=== PATIENT | male | born 1975 | race Caucasian/White ===

== ENCOUNTER 2017-11-07 11:32 | Emergency (ER) | payer BC, OTHER ==
[~2017-11-07 11:32] MED LIST: AMOX500T PO; AZIT250T3 PO; FEXO1TAB97 PO; LEXA10TA PO
[2017-11-07 11:34] VITALS: BP 113/65; PULSE 140; RESP 22; TEMP 102.8; O2SAT 97
[2017-11-07 11:43] VITALS: BP 133/83; PULSE 100; RESP 18; TEMP 99.3; O2SAT 98
--- NOTE | 2017-11-07 11:59 | PD ---
HPI Chief Complaint: Cold / Flu Symptoms Time Seen by Provider: 11:50 Travel History International Travel<30 days: No Contact w/Intl Traveler<30days: No Traveled to known affect area: No History of Present Illness HPI Patient comes emergency department complaining of cold/flulike symptoms that began last night. Patient complaining of generalized body aches, congestion, and subjective fevers,. Denies any known sick contacts. Denies any chest pain , abdominal pain, neck pain, sore throat, headache, back pain, vomiting, nausea , loss or change in bladder, or numbness or tingling anywhere. Denies anything making symptoms worse. Patient does report 3 episodes of nonbloody loose stool today. Patient reports taking ibuprofen that seemed to help some. Reports achiness radiates throughout his body. PFSH Past Medical History Anxiety: Yes Diminished Hearing: No Past Surgical History Other Surgery: Yes (ADENOIDS) Social History Alcohol Use: Yes (OCC) Tobacco Use: Yes (1 PPD) Substance Use: No Allergies-Medications (Allergen,Severity, Reaction): Coded Allergies: promethazine (Unverified Allergy, Unknown, 10/20/17) Reported Meds & Prescriptions Reported Meds & Active Scripts Active Azithromycin 250 Mg Tab 250 Mg PO DIRECTED Take 2 tabs (500 mg) on day 1 then 1 tab daily x 4 days. Shannon-D 24 Hour Allergy (Fexofenadine-Pseudoephedrine ER 24 HR) 180-240 Annmarie 1 Tab PO DAILY Amoxicillin 500 Mg Tab 1,000 Mg PO BID Reported Lexapro (Escitalopram Oxalate) 10 Mg Tab 10 Mg PO DAILY Review of Systems Except as stated in HPI: all other systems reviewed are Neg Physical Exam Narrative GENERAL: Well-developed, overly nourished, in no acute distress, and non-ill appearing. SKIN: Focused skin assessment warm and dry. HEAD: Atraumatic. Normocephalic. EYES: Pupils equal and round. EOMI. No scleral icterus. No injection or drainage. ENT: No nasal bleeding or discharge. Mucous membranes pink and moist. Tympanic membranes pearly aranda bilaterally. Posterior pharynx nonerythematous without exudate. Uvula is midline. No tenderness to facial sinuses to palpation. NECK: Trachea midline. No cervical lymphadenopathy. Supple. No nuclear rigidity. CARDIOVASCULAR: Regular rate and rhythm. No murmur appreciated. RESPIRATORY: No accessory muscle use. No respiratory distress. Clear to auscultation. Breath sounds equal bilaterally. GASTROINTESTINAL: Abdomen soft, non-tender, nondistended, and no guarding. Hepatic and splenic margins not palpable. Normal bowel sounds x4. No pulsatile mass. MUSCULOSKELETAL: No obvious deformities. No clubbing. No cyanosis. No edema. Full range of motion. NEUROLOGICAL: Awake and alert. No obvious cranial nerve deficits. Motor grossly within normal limits. Normal speech. PSYCHIATRIC: Appropriate mood and affect; insight and judgment normal. Data Data Last Documented VS Vital Signs Date Time Temp Pulse Resp B/P (MAP) Pulse Ox O2 Delivery O2 Flow Rate FiO2 11/07/17 11:43 99.3 100 18 133/83 (100) 98 Orders Orders Influenzae A/B Antigen (11/07/17 11:56) Ed Discharge Order (11/07/17 13:10) [facility] Medical Decision Making Medical Screen Exam Complete: Yes Emergency Medical Condition: Yes Differential Diagnosis Influenza, URI, sinusitis, allergies, viral syndrome Narrative Course Patient looks great, non-ill appearing. The patient is tolerating fluids and is well hydrated. Appears viral symptom complex. No clinical evidence by history or evaluation to suspect meningitis and/or sepsis. There was no evidence to suggest peritonsillar abscess or retropharyngeal abscess.The patient moves air well and oxygen saturations are normal. There is no clinical evidence to suggest pneumonia at this time. I discussed with the patient, diagnosis, plan of care and to follow up with the patients primary physician. The patient was instructed to return if the worsens in anyway, especially if not tolerating fluids, increased pain or swelling, difficulty swallowing or breathing, persistent fever, chest pains or discomfort, inability to keep medication or fluids down with or without vomiting, or as needed. The patient agreed with plan. Patient in no obvious distress upon re-evaluation. All pertinent laboratory result(s) discussed with patient. Any questions/concerns in reference to patient diagnosis/condition discussed and clarified prior to patient's discharge. Reinforced sheer importance of close follow up with patient's primary physician or primary care clinic. Instructed patient to return to ED immediately, if symptoms return/worsen. Patient showed understanding of above instructions. Further instructions and recommendations were detailed in discharge paperwork. Patient ambulated without difficulty out of ED at discharge. Diagnosis Primary Impression: Viral syndrome Referrals: [facility] Patient Instructions: General Instructions, Viral Syndrome (DC) Departure Forms: Work Release Enter return to work date: Nov 09, 2017 Additional Instructions: Follow-up with your primary care physician this week for reevaluation. Use over -the-counter cold and flu medication for symptomatic relief. Follow instructions on the packaging. Drink plenty of non-caffeinated and nonalcoholic fluids. Return to the emergency department if symptoms get worse. Disposition: 01 DISCHARGE HOME Condition: Stable Nacho Velasco Nov 07, 2017 11:59
== END 2017-11-07 13:46 | disposition home or self-care (01) ==
LOC: NEPK 11:32
DX: B34.9 Viral infection, unspecified (principal); F17.200 Nicotine dependence, unspecified, uncomplicated
CPT/HCPCS: 87804; 99283

== ENCOUNTER 2018-01-14 10:53 | Emergency (ER) | payer BC ==
[~2018-01-14] VITALS: Ht 180.3 cm; Wt 86.0 kg
[2018-01-14 10:55] VITALS: BP 127/83; PULSE 82; RESP 18; TEMP 97.2; O2SAT 99
--- NOTE | 2018-01-14 11:02 | PD ---
HPI Chief Complaint: Respiratory Symptoms Time Seen by Provider: 11:02 Travel History International Travel<30 days: No Contact w/Intl Traveler<30days: No Traveled to known affect area: No History of Present Illness HPI 42-year-old male presents emergency department with one-week history of severe sinus congestion, headache, postnasal drip, sore throat, cough, and hoarseness. Patient denies significant fever, chills, nausea, or vomiting. Patient has history of this in the past. He has been trying [id number] meds without improvement. He denies significant cough or shortness of breath. No chest pain. He is allergic to promethazine. PFSH Past Medical History Anxiety: Yes Diminished Hearing: No Past Surgical History Other Surgery: Yes (ADENOIDS) Social History Alcohol Use: Yes (OCC) Tobacco Use: Yes (1 PPD) Substance Use: No Allergies-Medications (Allergen,Severity, Reaction): Coded Allergies: promethazine (Unverified Allergy, Unknown, 10/20/17) Reported Meds & Prescriptions Reported Meds & Active Scripts Active Azithromycin 250 Mg Tab 250 Mg PO DIRECTED Take 2 tabs (500 mg) on day 1 then 1 tab daily x 4 days. Shannon-D 24 Hour Allergy (Fexofenadine-Pseudoephedrine ER 24 HR) 180-240 Annmarie 1 Tab PO DAILY Amoxicillin 500 Mg Tab 1,000 Mg PO BID Reported Lexapro (Escitalopram Oxalate) 10 Mg Tab 10 Mg PO DAILY Review of Systems Except as stated in HPI: all other systems reviewed are Neg General / Constitutional: No: Fever Eyes: No: Visual changes HENT: Positive: Headaches, Sore Throat, Rhinitis, Rhinorrhea, Congestion, No: Vertigo, Lightheadedness, Nosebleed, Neck Stiffness, Neck Pain, Dental Difficulties, Earache Cardiovascular: No: Chest Pain or Discomfort Respiratory: Positive: Cough, No: Shortness of Breath Gastrointestinal: No: Abdominal Pain Genitourinary: No: Dysuria Musculoskeletal: No: Pain Skin: No Rash Neurologic: No: Weakness Psychiatric: No: Depression Endocrine: No: Polydipsia Hematologic/Lymphatic: No: Easy Bruising Physical Exam Narrative GENERAL: Patient appears in no acute distress. He is quite hoarse. SKIN: Warm and dry. Normal color. Normal turgor. HEAD: Atraumatic. Normocephalic. Moderate sinus tenderness to both frontal maxillary sinuses. EYES: Pupils equal and round. No scleral icterus. No injection or drainage. ENT: No nasal bleeding or discharge. Mucous membranes pink and moist. TMs are somewhat dull bilaterally with mild injection. Posterior pharynx is inflamed with moderate generalized injection, the uvula is also inflamed, but airway is patent. There is no significant tonsillar swelling. NECK: Trachea midline. Supple without significant lymphadenopathy per CARDIOVASCULAR: Regular rate and rhythm. RESPIRATORY: No accessory muscle use. Clear to auscultation. Breath sounds equal bilaterally. MUSCULOSKELETAL: Extremities without clubbing, cyanosis, or edema. No obvious deformities. NEUROLOGICAL: Awake and alert. No obvious cranial nerve deficits. Motor grossly within normal limits. Five out of 5 muscle strength in the arms and legs. Normal speech. PSYCHIATRIC: Appropriate mood and affect; insight and judgment normal. Data Data Last Documented VS Vital Signs Date Time Temp Pulse Resp B/P (MAP) Pulse Ox O2 Delivery O2 Flow Rate FiO2 01/14/18 10:55 97.2 82 18 127/83 (98) 99 MDM Medical Decision Making Medical Screen Exam Complete: Yes Emergency Medical Condition: Yes Differential Diagnosis Sinusitis. Pharyngitis. Postnasal drip. Narrative Course Patient is treated with amoxicillin 875 twice daily 2 weeks. Patient is given Flonase nasal spray 2 sprays each nostril daily. Patient given prednisone 20 mg daily for 5 days. Patient is to use salt water gargles as needed for sore throat. Patient can take Tylenol as needed for pain. Patient to follow-up as needed. Diagnosis Primary Impression: Acute non-recurrent pansinusitis Patient Instructions: General Instructions, Sinusitis (ED) Additional Instructions: Patient is treated with amoxicillin 875 twice daily 2 weeks. Patient is given Flonase nasal spray 2 sprays each nostril daily. Patient given prednisone 20 mg daily for 5 days. Patient is to use salt water gargles as needed for sore throat. Patient can take Tylenol as needed for pain. Patient to follow-up as needed. Med/Other Pt SpecificInfo: Prescription(s) given Disposition: 01 DISCHARGE HOME Condition: Stable Jonas De Souza January 14, 2018 11:02
[2018-01-14] MEDS ORDERED: PRED20 PO (11:16)
[2018-01-14] MEDS ORDERED: FLUT1SPR5 EACH NARE (11:16)
[2018-01-14] MEDS ORDERED: AMOX875T PO (11:16)
== END 2018-01-14 11:22 | disposition home or self-care (01) ==
LOC: NEPD 10:53
DX: J01.40 Acute pansinusitis, unspecified (principal); R05 Cough; R49.0 Dysphonia; F41.9 Anxiety disorder, unspecified; F17.200 Nicotine dependence, unspecified, uncomplicated
CPT/HCPCS: 99283